=== PATIENT | male | born 1950 | race Caucasian/White ===

== ENCOUNTER 2016-11-14 10:55 | Inpatient (IN) | payer MEDICARE, BC ==
[~2016-11-14] VITALS: Ht 182.9 cm; Wt 106.0 kg
[2016-11-14] MEDS ORDERED: OXYB10TA PO (11:33)
[2016-11-14] MEDS ORDERED: IBUP400T20 PO (11:33)
[2016-11-14] MEDS ORDERED: AMLO5CAP3 PO (11:33)
[2016-11-14] MEDS ORDERED: FEXO180T PO (11:33)
[2016-11-14] MEDS ORDERED: KRIL1000 PO (11:33)
[2016-11-14] MEDS ORDERED: FENO145T2 PO (11:33)
[2016-11-14] MEDS ORDERED: SIMV10TA PO (11:33)
[2016-11-14] MEDS ORDERED: PROP80TA PO (11:33)
[2016-11-14] MEDS ORDERED: MULTTAB22 PO (11:33)
[2016-11-14] MEDS ORDERED: LEVO137T2 PO (11:33)
--- NOTE | 2016-11-25 09:44 | MH ---
cc: USMANSAGAR DATE OF ADMISSION: 11/26/2016 ADMITTING DIAGNOSIS Osteoarthritis of the left knee, patellofemoral disorder left knee, varus deformity left knee, pain left knee. HISTORY OF PRESENT ILLNESS The patient is a 66-year-old white male who has experienced at least a five-year history of pain involving his left knee. He presented to the office in February of this past year reporting bilateral knee pain of at least five years duration having noted the gradual onset of his symptoms more pronounced on the left side being unrelated to injury or unusual activity. He had undergone previous orthopedic evaluation while living in [facility], and was apparently diagnosed as having an arthritic condition for which he was advised to consider operative intervention but elected to continue with conservative management. He had been taking ibuprofen on a routine basis with limited benefit but with the passage of time became more symptomatic with pain that began to interfere with his daily routine. When seen in office evaluation in February of 2016 treatment options were reviewed. At that time the patient was fitted with a medial offloading brace and was thereafter advised conservative management. Unfortunately his insurance company would not cover the application of the brace and thus the patient utilized an orthotic hinged support of a commercial origin. He continued to take ibuprofen on a routine basis and was followed on an outpatient basis thereafter. He returned to the office in September of this year reporting increasing pain about his left knee that had begun to interfere with all forms of weightbearing activities. The pros and cons of continuing with conservative management versus operative intervention that would involve a total knee arthroplasty were outlined in detail. Emphasis was made regarding the fact that the decision to proceed with surgery would be left entirely to the patient's discretion. His current x-ray studies did reveal significant degenerative changes with near [id number] apposition about the medial compartment associated with a varus deformity of at least 10 degrees magnitude and secondary involvement of the patellofemoral articulation. The patient felt that his symptoms had progressed to a point in time where he was desirous of proceeding with operative treatment and in compliance with his wishes he is currently being admitted in order that the above be accomplished. PAST MEDICAL HISTORY His past medical history, hospitalizations and surgeries have included: 1. Bilateral cataract surgery with intraocular lens implants. 2. Tonsillectomy. 3. Colonoscopy. 4. Medical management for an infection of his left ankle. His medical illnesses include: 1. Hypothyroidism. 2. Essential tremor. 3. Elevated cholesterol. 4. Hypertension. 5. Asperger's disease. MEDICATIONS Current medications: 1. Levothyroxine 175 mcg daily. 2. Propranolol 80 mg twice daily for essential tremor. 3. Simvastatin 10 mg at bedtime. 4. Amlodipine. 5. Benazepril 5-20 daily. 6. Oxybutynin chloride ER, one daily. 7. Nafoxidine 180 mg daily. 8. Fenofibrate 145 mg daily. ALLERGIES The patient denies any known drug allergies. REVIEW OF SYSTEMS He does wear glasses. Denies headache, seizure or syncope. Occasional sinus congestion. No epistaxis. Auditory acuity intact. No tinnitus. No bleeding gums. He has occasional dysphagia. Denies cough, shortness of breath, upper respiratory infection, pneumonia or tuberculosis. No angina or heart disease. He is medically managed for hypertension. His appetite is good. Bowel movements are regular. No hepatitis, gallbladder disease, ulcers or hemorrhoids. No urinary tract infection. No kidney stones. No history of fractures. He has intermittent anxiety. His remaining review of systems is unremarkable and noncontributory. FAMILY HISTORY The patient is single. No children. Family history is positive for hypertension, stroke, thyroid disease, osteoporosis and breast cancer. SOCIAL HISTORY The patient completed a high school education. 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 Denies active use of tobacco. Ethanol consumption in the form of three beers on a weekly basis. PHYSICAL EXAMINATION Height 6 feet, weight 236 pounds. GENERAL: An alert, oriented and responsive 66-year-old white male who sits quietly upon the examination table with no obvious distress. HEENT: Pupils are equal, round and reactive to light. Extraocular movements are full. Sclera clear. External nares clear. External auditory canals clear. Dental intact. Mucous membranes pink and moist. Pharynx clear. NECK: Supple. Active range of motion without appreciable pain. Carotid pulse palpable bilaterally. Trachea midline. Thyroid without enlargement. LUNGS: Clear to auscultation and percussion. BACK: No CVA tenderness. No discomfort throughout the dorsolumbar spine. HEART: Regular rhythm. No murmur or gallop. ABDOMEN: Soft, nontender. Bowel sounds present. RECTAL: Per primary care physician. EXTREMITIES: Left Knee: No significant swelling or effusion. Minimal medial joint line tenderness. Apprehension and compression sign negative. Limited mobility in the 100 degree range of flexion with mild discomfort at the extreme of motion. No significant crepitation. No ligamentous laxity. Straight-leg raising unremarkable at 80 degrees. Independent gait. NEUROLOGIC: Cranial nerves II through XII grossly intact. IMPRESSION Osteoarthritis left knee, patellofemoral disorder left knee, varus deformity left knee, pain left knee. PLAN Left total knee arthroplasty. The nature of the planned surgical procedure, the potential complications and risks associated, the expectations of surgery and the consent form were thoroughly reviewed with the patient in the presence of his sister prior to admission to the hospital. Scott has indicated his full understanding regarding all of the above and given consent to proceed with treatment as outlined. Medical evaluation and clearance for surgery will be completed by his primary care physician, Dr. Josh Hollingsworth. Sagar Gautam MD NBS/BT /11:44 AM /8:43 AM
[2016-11-26 06:10] VITALS: BP 150/86; PULSE 58; RESP 16; TEMP 98.1; O2SAT 98
[2016-11-26] MEDS ORDERED: METOPROLOL TARTRATE 25 MG TAB PO PRN (06:15)
[2016-11-26] MEDS ORDERED: TRANEXAMIC ACID 1 GM PRIOR TO PROCEDURE IV SCH ×4 (06:15→06:30)
[2016-11-26] MEDS ORDERED: INSULIN HUMAN REGULAR 1,000 UNITS/10 ML VIAL SQ PRN (06:15)
[2016-11-26] MEDS ORDERED: ceFAZolin 2 GM PREMIX 50 ML IV SCH (06:15)
[2016-11-26] MEDS: POVIDONE IODINE 7.5% SCRUB 118 ML BOTTLE TOP SCH (06:15)
[2016-11-26 06:35] VITALS: PULSE 57
[2016-11-26] MEDS ORDERED: MIDAZOLAM HCL 5 MG/5 ML VIAL ONE (06:38)
[2016-11-26] MEDS ORDERED: LACTATED RINGER'S 1000 ML IV SCH (07:30)
[2016-11-26] MEDS ORDERED: TRANEXAMIC ACID IV SCH (07:30)
[2016-11-26] MEDS ORDERED: SODIUM CHLORID 0.9% 500 ML IV SCH (07:30)
[2016-11-26] MEDS ORDERED: SODIUM CHLORIDE 0.9% IV SCH (07:30)
[2016-11-26] MEDS ORDERED: HYDROmorphone HCL PF 2 MG/ML VIAL ONE (07:37)
[2016-11-26] MEDS ORDERED: ceFAZolin INJ 1,000 MG VIAL TOP ONE (07:50)
[2016-11-26] MEDS ORDERED: BUPIVACAINE HCL PF 0.5% 30 ML VIAL NB ONE (08:58)
[2016-11-26] MEDS ORDERED: TRANEXAMIC ACID INJ 1,000 MG in SODIUM CHLORIDE 0.9% INJ 100 ML IV SCH ×5 (09:30→10:15)
[2016-11-26] MEDS ORDERED: DO NOT ADM ANY ANTICOAGULANT DRUGS XX PRN (10:00)
[2016-11-26] MEDS: DEXT 5%-NACL 0.45% 1000 ML INJ 1,000 ML IV SCH ×2 (10:02→18:54)
[2016-11-26] MEDS ORDERED: DEXT 5%-NACL 0.45% 1000 ML INJ 1,000 ML IV SCH (10:07)
[2016-11-26] MEDS ORDERED: *morphine SULFATE 8 MG/ML PERIprocedure ONLY ONE (10:09)
[2016-11-26] MEDS ORDERED: ZOLPIDEM TARTRATE 5 MG TAB PO PRN ×2 (10:15)
[2016-11-26] MEDS ORDERED: Post-op Orders (for Pharmacy) MISC XX ONE ×2 (10:15)
[2016-11-26] MEDS ORDERED: MISCELLANEOUS PHARMACY INFORMATION XX ONE ×2 (10:15)
[2016-11-26] MEDS ORDERED: ONDANSETRON HCL 4 MG/2 ML VIAL IVP PRN ×2 (10:15)
[2016-11-26] MEDS ORDERED: SODIUM CHLORIDE 0.9% FLUSH 5 ML FLUSH IVF PRN ×2 (10:15)
[2016-11-26] MEDS ORDERED: DOCUSATE SODIUM 100 MG CAP PO PRN ×2 (10:15)
[2016-11-26] MEDS ORDERED: MAGNESIUM HYDROXIDE SUSP 30 ML CUP PO PRN (10:15)
[2016-11-26] MEDS ORDERED: RIVAROXABAN 10 MG TAB PO SCH (10:15)
[2016-11-26] MEDS ORDERED: MORPHINE SULFATE 30 MG/30 ML PCA IV SCH ×2 (10:15)
[2016-11-26] MEDS ORDERED: ACETAMINOPHEN/HYDROcodone 325 MG/5 MG TAB PO PRN ×3 (10:15)
[2016-11-26] MEDS ORDERED: diphenhydrAMINE HCL 25 MG CAP PO PRN (10:15)
[2016-11-26] MEDS ORDERED: BISACODYL 10 MG SUPP PR PRN (10:15)
[2016-11-26] MEDS ORDERED: ACETAMINOPHEN 325 MG TAB PO PRN ×2 (10:15)
[2016-11-26] MEDS ORDERED: NALOXONE HCL 0.4 MG/ML AMP IV PRN ×2 (10:15)
[2016-11-26 12:00] VITALS: BP 135/61; PULSE 57; RESP 18; TEMP 95.6; O2SAT 98
[2016-11-26] MEDS ORDERED: ONDANSETRON HCL 4 MG/2 ML VIAL IV PUSH ONE (12:00)
[2016-11-26] MEDS ORDERED: ACETAMINOPHEN 1000 MG/100 ML VIAL IV ONE (12:00)
[2016-11-26] MEDS ORDERED: PROPOFOL 200 MG/20 ML AMP IV ONE (12:00)
[2016-11-26] MEDS ORDERED: LACTATED RINGER'S 1000 ML INJ 1,000 ML IV ONE (12:00)
[2016-11-26] MEDS ORDERED: NEOSTIGMINE 3 MG/3 ML SYR IV ONE (12:00)
--- NOTE | 2016-11-26 12:23 | RADRPT ---
EXAM DATE/TIME: 11/26/2016 10:19 [facility] COMPARISON: No previous studies available for comparison. INDICATIONS : Post Op Left Knee. MEDICAL HISTORY : None. SURGICAL HISTORY : None. ENCOUNTER: Initial ACUITY: 1 day PAIN SCORE: Non-responsive. LOCATION: Left Knee FINDINGS: The patient is status post total knee replacement. The prosthetic components are well place. There is a suprapatellar drain present. Air seen in the soft tissues. CONCLUSION: Successful placement of a left total knee prosthesis. Pee Jackson MD on November 26, 2016 at 12:20 Board Certified Radiologist. This report was verified electronically.
[2016-11-26] MEDS ORDERED: fentaNYL CITRATE 250 MCG/5 ML AMP ONE (13:23)
[2016-11-26] MEDS ORDERED: PCA - TOTAL MG MORPHINE DELIVERED PER SHIFT SCH (14:00)
[2016-11-26] MEDS: PCA - TOTAL MG MORPHINE DELIVERED PER SHIFT SCH ×2 (14:00→19:45)
[2016-11-26 16:08] VITALS: O2SAT 98
[2016-11-26 17:00] VITALS: BP 142/76; PULSE 66; RESP 16; TEMP 95.2; O2SAT 94
--- NOTE | 2016-11-26 18:04 | PD.CONS ---
[facility] Request[facility] By Reason for Consult medical management Primary Care Physician Josh Hollingsworth M.D. Diagnoses: History of Present Illness 66 y/o M with Asperger's, HTN, HLP and hypothyroidism who p/w severe left OA s/ p Left total knee arthroplasty today. Patient failed conservative treatment. He is seen after surgery and has no complaints. patient sister is at the bedside who is helping with the interview. [facility] consulted for medical management. Review of Systems Constitutional: DENIES: Diaphoretic episodes, Fatigue, Fever, Weight gain, Weight loss, Chills, Dizziness, Change in appetite, Night Sweats Eyes: DENIES: Blurred vision, Diplopia, Eye inflammation, Eye pain, Vision loss , Photosensitivity, Double Vision Ears, nose, mouth, throat: DENIES: Tinnitus, Hearing loss, Vertigo, Nasal discharge, Oral lesions, Throat pain, Hoarseness, Ear Pain, Running Nose, Epistaxis, Sinus Pain, Toothache, Odynophagia Respiratory: DENIES: Apneas, Cough, Snoring, Wheezing, Hemoptysis, Sputum production, Shortness of breath Cardiovascular: DENIES: Chest pain, Palpitations, Syncope, Dyspnea on Exertion , PND, Lower Extremity Edema, Orthopnea, Claudication Gastrointestinal: DENIES: Abdominal pain, Black stools, Bloody stools, Constipation, Diarrhea, Nausea, Vomiting, Difficulty Swallowing, Anorexia Genitourinary: DENIES: Sexual dysfunction, Urinary frequency, Urinary incontinence, Urgency, Hematuria, Dysuria, Nocturia, Penile Discharge, Testicular Pain, Testicular Swelling Musculoskeletal: DENIES: Joint pain, Muscle aches, Stiffness, Joint Swelling, Back pain, Neck pain Integumentary: DENIES: Abnormal pigmentation, Nail changes, Pruritus, Rash Hematologic/lymphatic: DENIES: Bruising, Lymphadenopathy Immunologic/allergic: DENIES: Eczema, Urticaria Neurologic: DENIES: Abnormal gait, Headache, Localized weakness, Paresthesias, Seizures, Speech Problems, Tremor, Poor Balance Psychiatric: DENIES: Anxiety, Confusion, Mood changes, Depression, Hallucinations, Agitation, Suicidal Ideation, Homicidal Ideation, Delusions Past Family Social History Allergies: Coded Allergies: No Known Allergies (Unverified , 11/26/16) Past Medical History 1. Hypothyroidism. 2. Essential tremor. 3. Hyperlipidemia 4. Hypertension. 5. Asperger's disease. Past Surgical History 1. Bilateral cataract surgery with intraocular lens implants. 2. Tonsillectomy. 3. Colonoscopy. 4. Medical management for an infection of his left ankle. Reported Medications Reported Meds & Active Scripts Active Reported Ibuprofen 400 Mg Tab 400 Mg PO BID Krill Oil 1,000 Mg Cap 1,000 Mg PO DAILY Multi For Him (Multiple Vitamins W/ Minerals) 1 Tab Tab 1 Tab PO DAILY Fenofibrate 145 Mg Tab 145 Mg PO HS Fexofenadine (Fexofenadine HCl) 180 Mg Tab 180 Mg PO DAILY Amlodipine-Benazepril 5-20 Mg Cap 1 Cap PO DAILY Oxybutynin ER 24 HR (Oxybutynin Chloride) 10 Mg Tab 10 Mg PO DAILY Simvastatin 10 Mg Tab 10 Mg PO HS Propranolol (Propranolol HCl) 80 Mg Tab 80 Mg PO BID Levothyroxine (Levothyroxine Sodium) 137 Mcg Tab 137 Mcg PO DAILY Active Ordered Medications Current Medications Lactated Ringer's 1,000 ml @ 30 mls/hr Q24H IV Last administered on 11/26/16 06:25; Start 11/26/16 at 07:30; Stop 11/26/16 at 10:46; Status DC Sodium Chloride (NS 500 ml Inj) 500 ml @ 30 mls/hr [id number] IV ; Start 11/26/16 at 07:30; Stop 11/26/16 at 10:46; Status DC Insulin Human Regular (NovoLIN R INJ) See Protocol Table ... UNSCH X1 PRN SQ SEE PROTOCOL; Start 11/26/16 at 06:15; Stop 11/26/16 at 10:46; Status DC Metoprolol Tartrate (Lopressor) 25 mg UNSCH X1 PRN PO SEE LABEL COMMENTS; Start 11/26/16 at 06:15; Stop 11/26/16 at 10:46; Status DC Povidone Iodine 1 applic 1 applic ONCE TOP ; Start 11/26/16 at 06:15; Stop 11/29 at 06:14 Cefazolin Sodium/ Dextrose 50 ml @ 100 mls/hr MAPPING ENGINEER IV Last administered on 11/26/16 06:25; Start 11/26/16 at 06:15; Stop 11/26/16 at 12:52; Status DC Tranexamic Acid 1075 mg/Sodium Chloride 110.75 ml @ 200 mls/ hr ONCE IV ; Start 11/26/16 at 07:30; Stop 11/26/16 at 13:30; Status Cancel Tranexamic Acid 1000 mg/Sodium Chloride 110 ml @ 220 mls/hr ONCE IV ; Start at 06:15; Stop 11/27/16 at 06:14; Status Cancel Tranexamic Acid 1000 mg/Sodium Chloride 110 ml @ 200 mls/hr ONCE IV ; Start at 09:30; Stop 11/26/16 at 09:31; Status Cancel Tranexamic Acid/ Sodium Chloride (Cyklokapron Inj/ NS Inj) 110 ml @ 220 mls/hr ONCE IV Last administered on 11/26/16 06:30; Start 11/26/16 at 06:30; Stop at 12:30; Status DC Midazolam HCl (Versed Inj) 5 mg STK-MED ONCE .ROUTE Last administered on 06:46; Start 11/26/16 at 06:38; Stop 11/26/16 at 06:39; Status DC Hydromorphone HCl (Dilaudid Pf Inj) 2 mg STK-MED ONCE .ROUTE ; Start 11/26/16 at 07:37; Stop 11/26/16 at 07:38; Status DC Cefazolin Sodium (Ancef Inj) 2,000 mg STK-MED ONCE TOP Last administered on 07:50; Start 11/26/16 at 07:50; Stop 11/26/16 at 08:19; Status DC IV Flush (NS Flush) 2 ml UNSCH PRN IVF FLUSH AFTER USING IV ACCESS; Start 11/26 at 10:15; Status UNV IV Flush 2 ml 2 ml BID IVF ; Start 11/26/16 at 21:00; Status UNV Cefazolin Sodium/ Sodium Chloride (Ancef Inj/NS Inj) 100 ml @ 200 mls/hr Q6H IV Last administered on 11/26/16 13:33; Start 11/26/16 at 14:00; Stop at 02:29 Miscellaneous Information (Post-op Orders (for Pharmacy)) STAT ONCE XX ; Start 11/26/16 at 10:15; Stop 11/26/16 at 10:46; Status DC Rivaroxaban (Xarelto) 10 mg Q24H PO ; Start 11/26/16 at 10:15; Status UNV Miscellaneous Medication ([facility]) ONCE ONCE XX ; Start at 10:15; Stop 11/26/16 at 10:16; Status UNV Acetaminophen/ Hydrocodone Bitart ([place] 5-325 Mg) 1 tab Q4H PRN PO PAIN LESS THAN 5 ON SCALE; Start 11/26/16 at 10:15; Status UNV Acetaminophen/ Hydrocodone Bitart ([place] 5-325 Mg) 2 tab Q4H PRN PO PAIN SCALE 5 TO 10; Start 11/26/16 at 10:15; Status UNV Acetaminophen 650 mg 650 mg Q6H PRN PO Temp > 101; Start 11/26/16 at 10:15 Tranexamic Acid/ Sodium Chloride (Cyklokapron Inj/ NS Inj) 110 ml @ 200 mls/hr UNSCH IV ; Start 11/26/16 at 10:15; Stop 11/26/16 at 10:47; Status UNV Ondansetron HCl (Zofran Inj) 4 mg Q6H PRN IVP NAUSEA OR VOMITING; Start at 10:15; Status UNV Docusate Sodium (Colace) 100 mg BID PRN PO constipation; Start 11/26/16 at 10: 15; Status UNV Zolpidem Tartrate (Ambien) 5 mg HS PRN PO SLEEP; Start 11/26/16 at 10:15; Status UNV Bisacodyl (Dulcolax Supp) 10 mg DAILY PRN [place] CONSTIPATION; Start 11/26/16 at 10 :15 Magnesium Hydroxide (Milk Of Magnesia Liq) 30 ml DAILY PRN PO CONSTIPATION; Start 11/26/16 at 10:15 Naloxone HCl (Narcan Inj) 0.4 mg UNSCH PRN IV RESPIRATORY RATE LESS THAN 10; Start 11/26/16 at 10:15; Stop 11/28/16 at 12:00 Diphenhydramine HCl (Benadryl) 25 mg Q6H PRN PO ITCHING; Start 11/26/16 at 10: 15; Stop 11/28/16 at 12:00 Morphine Sulfate (Morphine 1 Mg/ ml LUMBER PLANER) 30 mg UNSCH IV Last administered on t 12:57; Start 11/26/16 at 10:15; Stop 11/28/16 at 12:00 LUMBER PLANER Dosage Infused (Pha) 1 1 Q8HR .XX Last administered on 11/26/16 14:00; Start 11/26/16 at 14:00; Stop 11/28/16 at 12:00 Dextrose/Sodium Chloride (D5W-1/2 NS 1000 ml Inj) 1,000 ml @ 125 mls/hr Q8H IV Last administered on 11/26/16 10:02; Start 11/26/16 at 10:02 Morphine Sulfate (*morphine INJ PERIprocedure ONLY) 8 mg STK-MED ONCE .ROUTE Last administered on 11/26/16 10:09; Start 11/26/16 at 10:09; Stop 11/26/16 at 10:10; Status DC IV Flush (NS Flush) 2 ml UNSCH PRN IVF FLUSH AFTER USING IV ACCESS; Start 11/26 at 10:15 IV Flush 2 ml 2 ml BID IVF ; Start 11/26/16 at 21:00 Cefazolin Sodium/ Sodium Chloride (Ancef Inj/NS Inj) 100 ml @ 200 mls/hr Q6H IV ; Start 11/26/16 at 10:15; Stop 11/26/16 at 22:44; Status UNV Miscellaneous Information (Post-op Orders (for Pharmacy)) STAT ONCE XX ; Start 11/26/16 at 10:15; Stop 11/26/16 at 10:45; Status DC Rivaroxaban (Xarelto) 10 mg Q24H PO ; Start 11/27/16 at 09:00 Miscellaneous Medication ([facility]) ONCE ONCE XX ; Start at 10:15; Stop 11/26/16 at 12:44; Status DC Acetaminophen/ Hydrocodone Bitart ([place] 5-325 Mg) 1 tab Q4H PRN PO PAIN LESS THAN 5 ON SCALE; Start 11/26/16 at 10:15 Acetaminophen/ Hydrocodone Bitart ([place] 5-325 Mg) 2 tab Q4H PRN PO PAIN SCALE 5 TO 10; Start 11/26/16 at 10:15 Acetaminophen 650 mg 650 mg Q6H PRN PO Temp > 101; Start 11/26/16 at 10:15; Status UNV Tranexamic Acid/ Sodium Chloride (Cyklokapron Inj/ NS Inj) 110 ml @ 200 mls/hr UNSCH IV ; Start 11/26/16 at 10:15; Stop 11/26/16 at 10:47; Status UNV Ondansetron HCl (Zofran Inj) 4 mg Q6H PRN IVP NAUSEA OR VOMITING; Start at 10:15 Docusate Sodium (Colace) 100 mg BID PRN PO constipation; Start 11/26/16 at 10: 15 Zolpidem Tartrate (Ambien) 5 mg HS PRN PO SLEEP; Start 11/26/16 at 10:15 Naloxone HCl (Narcan Inj) 0.4 mg UNSCH PRN IV RESPIRATORY RATE LESS THAN 10; Start 11/26/16 at 10:15; Status UNV Morphine Sulfate (Morphine 1 Mg/ ml LUMBER PLANER) 30 mg UNSCH IV ; Start 11/26/16 at 10: 15; Status UNV LUMBER PLANER Dosage Infused (Pha) 1 1 Q8HR .XX ; Start 11/26/16 at 14:00; Status UNV Dextrose/Sodium Chloride (D5W-1/2 NS 1000 ml Inj) 1,000 ml @ 125 mls/hr Q8H IV ; Start 11/26/16 at 10:07; Status UNV Miscellaneous Information ALL NURSING DEPARTME... UNSCH PRN XX SEE LABEL COMMENTS; Start 11/26/16 at 10:00; Stop 11/27/16 at 09:59 Pneumococcal Polyvalent Vaccine (Pneumovax-23 Inj) 25 mcg ONCE ONCE IM ; Start 11/27/16 at 10:00; Stop 11/27/16 at 10:01 Influenza Virus Vaccine (Flu (Quadrivalent) Vaccine Inj) 0.5 ml ONCE ONCE IM ; Start 11/27/16 at 10:00; Stop 11/27/16 at 10:01 Fentanyl Citrate (fentaNYL INJ) 250 mcg STK-MED ONCE .ROUTE ; Start 11/26/16 at 13:23; Stop 11/26/16 at 13:24; Status DC Family History mother had CVA maternal grandmother breast cancer Social History lives in [facility] with his sister. denied tobacco or illicit drug use. occasional alcohol use. Physical Exam Vital Signs Vital Signs Date Time Temp Pulse Resp B/P Pulse Ox O2 Delivery O2 Flow Rate FiO2 11/26/16 16:08 98 21 11/26/16 12:57 16 11/26/16 12:00 95.6 57 18 135/61 98 11/26/16 11:30 54 16 140/60 95 Room Air 11/26/16 11:00 56 16 156/71 97 Room Air 11/26/16 10:45 55 16 160/72 98 Room Air 11/26/16 10:30 60 16 117/57 97 Room Air 11/26/16 10:15 57 16 143/60 95 Room Air 11/26/16 09:58 98.6 79 16 133/81 97 Nasal Cannula 3 11/26/16 06:35 57 11/26/16 06:35 99 Nasal Cannula 3 11/26/16 06:10 98.1 58 16 150/86 98 Physical Exam GENERAL: This is a well-nourished, well-developed patient, in no apparent distress. SKIN: No rashes, ecchymoses or lesions. Cool and dry. HEAD: Atraumatic. Normocephalic. No temporal or scalp tenderness. EYES: Pupils equal round and reactive. Extraocular motions intact. No scleral icterus. No injection or drainage. ENT: Nose without bleeding, purulent drainage or septal hematoma. Throat without erythema, tonsillar hypertrophy or exudate. Uvula midline. Airway patent. NECK: Trachea midline. No JVD or lymphadenopathy. Supple, nontender, no meningeal signs. CARDIOVASCULAR: Regular rate and rhythm without murmurs, gallops, or rubs. RESPIRATORY: Clear to auscultation. Breath sounds equal bilaterally. No wheezes , rales, or rhonchi. GASTROINTESTINAL: Abdomen soft, non-tender, nondistended. No hepato-splenomegaly , or palpable masses. No guarding. MUSCULOSKELETAL: left knee in splint NEUROLOGICAL: Awake and alert. Cranial nerves II through XII intact. Motor and sensory grossly within normal limits. Five out of 5 muscle strength in all muscle groups. Normal speech. Laboratory Laboratory Tests Test 11/26/16 06:15 Blood Type O POSITIVE Antibody Screen NEGATIVE Blood Bank Comment Imaging Last Impressions Knee X-Ray 11/26/16 1002 Signed Impressions: Service Date/Time: Saturday, November 26, 2016 10:19 - CONCLUSION: Successful placement of a left total knee prosthesis. Pee Jackson MD Assessment and Plan Assessment and Plan Severe left knee OA -s/p Left total knee arthroplasty.. -managed per Ortho. HTN, HLP, hypothyroidism, Asperger -resume home meds. DVT prophylaxes -Lovenox Code Status full Discussed Condition With patient, his sister, multiple family members at bedside and nurse. Marcela Martinez MD Nov 26, 2016 18:04
[2016-11-26] MEDS: FENOFIBRATE 145 MG TAB PO SCH (20:15)
[2016-11-26] MEDS: PRAVASTATIN SOD 20 MG TAB PO SCH (20:15)
[2016-11-26] MEDS: SODIUM CHLORIDE 0.9% FLUSH 5 ML FLUSH IVF SCH (20:16)
[2016-11-26] MEDS ORDERED: SODIUM CHLORIDE 0.9% FLUSH 5 ML FLUSH IVF SCH (21:00)
[2016-11-26 23:05] VITALS: BP 147/60; PULSE 69; RESP 17; TEMP 96.7; O2SAT 97
[2016-11-27] VITALS: BP 154/79; PULSE 79; RESP 19; TEMP 96.9; O2SAT 99
[2016-11-27 04:00] VITALS: BP 136/73; PULSE 94; RESP 17; TEMP 97.1; O2SAT 95
[2016-11-27] MEDS: DEXT 5%-NACL 0.45% 1000 ML INJ 1,000 ML IV SCH ×4 (04:18→19:56)
[2016-11-27] MEDS: PCA - TOTAL MG MORPHINE DELIVERED PER SHIFT SCH ×4 (06:00→19:57)
[2016-11-27] MEDS ORDERED: ASPI325T PO (06:30)
[2016-11-27] MEDS ORDERED: HYDR-3516 PO (06:30)
--- NOTE | 2016-11-27 06:32 | HHI.FF ---
Face to Face Verification Diagnosis: (1) DJD (degenerative joint disease) of knee Physical Therapy Gait training Knee: Total knee, Protocol: Left, Full weight bearing Left LE Weight Bearing: WB as tolerated Left LE Range of Motion: Active ROM Nursing Dressing Changes: Daily dressing change I have seen patient Bonilla Kaplan on 11/27/16. My clinical findings support the need for the requested home health care services because: Limited ability to care for self High risk of falls I certify that my clinical findings support that this patient is homebound because: Post-op weakness Unsteady gait/balance Unsafe to leave home unassisted Toni Gautam MD Nov 27, 2016 06:32
[2016-11-27] MEDS ORDERED: WALKER WHEELS/F1 MIS (06:36)
[2016-11-27] MEDS ORDERED: MISC-163 (06:36)
[2016-11-27 06:59] LABS: HEMATOCRIT 30.8 % (39.0-51.0); REVIEW FLAG FINAL
[2016-11-27 08:00] VITALS: BP 163/71; PULSE 88; RESP 19; TEMP 97.3; O2SAT 95
[2016-11-27] MEDS: LEVOTHYROXINE SODIUM 112 MCG TAB PO SCH (08:08)
[2016-11-27] MEDS: LEVOTHYROXINE SODIUM 25 MCG TAB PO SCH (08:08)
[2016-11-27] MEDS ORDERED: NON-FORMULARY DRUG (Amlodipine-Benazepril 1 CAP) PO SCH (09:00)
[2016-11-27] MEDS ORDERED: NON-FORMULARY DRUG (Krill Oil 1,000 MG) PO SCH (09:00)
[2016-11-27] MEDS: TOLTERODINE TARTRATE 4 MG CAP LA PO SCH (09:20)
[2016-11-27] MEDS: SODIUM CHLORIDE 0.9% FLUSH 5 ML FLUSH IVF SCH ×2 (09:20→20:18)
[2016-11-27] MEDS: ACETAMINOPHEN/HYDROcodone 325 MG/5 MG TAB PO PRN ×3 (09:20→20:17)
[2016-11-27] MEDS: MULTIVITAMIN HEMATINIC THERAPEUTIC TAB PO SCH (09:20)
[2016-11-27] MEDS: LORATADINE 10 MG TAB PO SCH (09:21)
[2016-11-27] MEDS: LISINOPRIL 20 MG TAB PO SCH (09:21)
[2016-11-27] MEDS: amLODIPine BESYLATE 5 MG TAB PO SCH (09:21)
[2016-11-27] MEDS: RIVAROXABAN 10 MG TAB PO SCH (09:21)
[2016-11-27] MEDS ORDERED: INFLUENZA VIRUS VACCINE (QUADRIVALENT) 0.5 ML SYR IM ONE (10:00)
[2016-11-27] MEDS ORDERED: PNEUMOCOCCAL POLYVALENT INJ 25 MCG/0.5 ML SYR IM ONE (10:00)
--- NOTE | 2016-11-27 11:18 | HHI.PR ---
Subjective Remarks Pt has some pain but states that he had just gone for a walk. no CP/SOB/N/V doing well w PT he states. Objective Vitals Vital Signs Date Time Temp Pulse Resp B/P Pulse Ox O2 Delivery O2 Flow Rate FiO2 11/27/16 08:00 97.3 88 19 163/71 95 11/27/16 07:15 Room Air 11/27/16 04:00 97.1 94 17 136/73 95 11/27/16 00:00 96.9 79 19 154/79 99 11/26/16 23:05 96.7 69 17 147/60 97 11/26/16 17:00 95.2 66 16 142/76 94 11/26/16 16:08 98 21 11/26/16 12:57 16 11/26/16 12:00 95.6 57 18 135/61 98 11/26/16 11:30 54 16 140/60 95 Room Air I/O 11/26/16 11/26/16 11/26/16 11/27/16 11/27/16 11/27/16 07:00 15:00 23:00 07:00 15:00 23:00 Intake Total 1680 ml 240 ml 480 ml Output Total 425 ml 1530 ml Balance 1255 ml 240 ml -1050 ml Intake Oral 480 ml 240 ml 480 ml Other 1200 ml Output Urine Total 1400 ml Drainage Total 130 ml Estimated Blood Loss 200 ml Autotransfusion 225 ml # Voids 1 1 # Bowel Movements 0 0 0 Result Diagram: 11/27/16 0604 Imaging Last Impressions Knee X-Ray 11/26/16 1002 Signed Impressions: Service Date/Time: Saturday, November 26, 2016 10:19 - CONCLUSION: Successful placement of a left total knee prosthesis. Pee Jackson MD Objective Remarks GENERAL: This is a well-nourished, well-developed patient, in no apparent distress. CARDIOVASCULAR: Regular rate and rhythm without murmurs RESPIRATORY: Clear to auscultation. Breath sounds equal bilaterally. No wheezes GASTROINTESTINAL: Abdomen soft, non-tender, nondistended. No guarding. MUSCULOSKELETAL: left knee w dressing and drain in place. Serosanguinous, able to wiggle his toes and sensation intact NEUROLOGICAL: Awake and alert. Cranial nerves II through XII intact. Motor and sensory grossly within normal limits. Normal speech. A/P Assessment and Plan Severe left knee OA -s/p Left total knee arthroplasty.POD#1, pain control, anticoagulation, rehab managed by Ortho. HTN, HLP, hypothyroidism, Asperger -all home meds have been resumed. H&H stable post op. Pt is doing well and is clinically stable. Pt afebrile thus far. Encouraged use of IS q1hr while awake to prevent post op fever. DVT prophylaxis -xarelto per ortho Discharge Planning d/c per primary team Lacey Ngo MD Nov 27, 2016 11:18
[2016-11-27 11:54] VITALS: BP 161/80; PULSE 94; RESP 20; TEMP 98.4; O2SAT 95
[2016-11-27 16:00] VITALS: BP 158/78; PULSE 80; RESP 20; TEMP 97.6; O2SAT 95
[2016-11-27 20:00] VITALS: BP 128/61; PULSE 99; RESP 22; TEMP 96.8; O2SAT 97
[2016-11-27] MEDS: PRAVASTATIN SOD 20 MG TAB PO SCH (20:17)
[2016-11-27] MEDS: FENOFIBRATE 145 MG TAB PO SCH (20:17)
[2016-11-27] MEDS: POVIDONE IODINE 7.5% SCRUB 118 ML BOTTLE TOP SCH (23:40)
[2016-11-28] VITALS: BP 139/60; PULSE 95; RESP 20; TEMP 98.9; O2SAT 96
[2016-11-28] MEDS: ACETAMINOPHEN/HYDROcodone 325 MG/5 MG TAB PO PRN ×2 (06:17→11:36)
[2016-11-28] MEDS: LEVOTHYROXINE SODIUM 112 MCG TAB PO SCH (06:17)
[2016-11-28] MEDS: LEVOTHYROXINE SODIUM 25 MCG TAB PO SCH (06:17)
[2016-11-28 08:00] VITALS: BP 137/72; PULSE 84; RESP 16; TEMP 95.4; O2SAT 96
[2016-11-28] MEDS: MULTIVITAMIN HEMATINIC THERAPEUTIC TAB PO SCH (09:00)
[2016-11-28] MEDS: SODIUM CHLORIDE 0.9% FLUSH 5 ML FLUSH IVF SCH (09:00)
[2016-11-28] MEDS: LISINOPRIL 20 MG TAB PO SCH (09:49)
[2016-11-28] MEDS: RIVAROXABAN 10 MG TAB PO SCH (09:49)
[2016-11-28] MEDS: amLODIPine BESYLATE 5 MG TAB PO SCH (09:49)
[2016-11-28] MEDS: LORATADINE 10 MG TAB PO SCH (09:49)
[2016-11-28] MEDS: TOLTERODINE TARTRATE 4 MG CAP LA PO SCH (09:49)
[2016-11-28] MEDS: DEXT 5%-NACL 0.45% 1000 ML INJ 1,000 ML IV SCH (10:02)
[2016-11-28 12:00] VITALS: BP 153/70; PULSE 98; RESP 19; TEMP 96.3; O2SAT 96
--- NOTE | 2016-11-28 13:15 | MP ---
cc: SAGAR GAUTAM DATE OF SURGERY: 11/26/2016 PREOPERATIVE DIAGNOSIS Osteoarthritis of the left knee, patellofemoral disorder left knee, varus deformity left knee, pain left knee. POSTOPERATIVE DIAGNOSIS Osteoarthritis of the left knee, patellofemoral disorder left knee, varus deformity left knee, pain left knee. PROCEDURE Left total knee arthroplasty. SURGEON Lotus ANESTHESIA General endotracheal. INDICATIONS A 66-year-old white male with a five-year history of left knee pain who had reported the onset of bilateral knee pain within the previous five years with gradual onset but being more pronounced on the left side. He had undergone previous orthopedic evaluation while he was living in the [place], [place] area, and apparently was diagnosed as having an arthritic condition for which he was advised to consider operative intervention at that time. He elected to continue with conservative management which included taking ibuprofen on a routine basis with limited benefit being appreciated. With the passage of time he became progressively more symptomatic with pain that began to interfere with his daily routine. He was evaluated in the office in February of this past year and at that time overall findings and treatment options were reviewed. The patient was fitted with a medial offloading brace and was advised to continue with conservative management. Unfortunately his insurance company would not cover the application the brace and the patient thus utilized an orthotic hinged support of commercial origin. He continued to take ibuprofen on a routine basis while being followed thereafter. He returned to the office in September of this year reporting increasing pain about his left knee that had begun to interfere with all forms of weightbearing activities. The pros and cons of continued conservative management versus operative intervention involving total knee arthroplasty were outlined in detail. Emphasis was made regarding the fact that the decision to proceed with surgery would be left entirely to the patient's discretion. His current x-ray studies revealed significant degenerative changes with near [id number] apposition about the medial compartment associated with a varus deformity of at least 10 degrees magnitude and secondary involvement of the patellofemoral articulation. The patient felt that his symptoms had progressed to a point in time where he was desirous of proceeding with surgery as discussed and in compliance with his wishes he was scheduled for admission at this time in order that total knee replacement be completed. FORMAT Following the induction of satisfactory general anesthesia by endotracheal intubation as completed per the Department of Anesthesia, the patient was positioned upon the operating table in a supine orientation. A tourniquet was established around the proximal portion of the left lower extremity. The extremity proper was isolated with a U-drape thereafter being prepped with Betadine solution and draped into a sterile field in the routine manner. Prior to initiation of the actual procedure the standard time-out protocol was completed and all parameters were appropriately addressed and confirmed by operating room personnel. The extremity was elevated for approximately one minute and the tourniquet thus inflated to 250 mmHg pressure. A sharp skin incision was initiated midline over the anterior aspect of the knee and developed through underlying subcutaneous tissue with hemostasis maintained by electrocautery. By deepening dissection the anterior capsule was exposed. A medial capsulotomy completed and the patella subluxed in a lateral orientation. Examination of the joint space revealed severe tricompartmental degenerative changes with absence of the anterior cruciate ligament. The articular surface of the patella was resected with a power saw. The three-hole guide was utilized for establishing post holes. A centering hole was placed in the distal aspect of the femur allowing positioning of the intramedullary guide. A distal femoral cutting jig was attached and the distal femur resected. AP measurement noted 72.5 mm sizing to be appropriate. The matching cutting block was positioned, anterior, posterior and chamfer cuts were completed. The tibial plateau was thereafter subluxed in an anterior orientation allowing positioning of the extramedullary guide. The tibial plateau was resected and measured with 83 mm sizing determined to be appropriate. A trial reduction followed utilizing a 72.5 mm anatomic femoral component, an 83 mm tibial base with 10, 12 and 14 mm bearing inserts trialed in a sequential fashion. The 14 mm thickness was determined to be the most favorable fit. The knee was readily brought to full extension. There was no laxity to varus valgus stress at both 0 and 90 degrees flexed posture. Orientation was confirmed as being appropriate with measurement of the pelvic guide through the mechanical axis of the knee. A trial reduction followed utilizing a 34 mm standard three-post patellar button. Again, good tracking was demonstrated with no tendency toward subluxation. All trial components being removed the remaining portion of the proximal tibia was prepared for insertion of the permanent component. The joint space was thoroughly lavaged with pulsating antibiotic solution and hemostasis maintained by electrocautery. An autogenous bone plug was inserted in the distal femoral guide hole and thereafter a preparation of Palmer bone cement was utilized in inserting knee components in a sequential fashion which included an 83 mm fixed cruciate tibial plate to which a 14 mm Vanguard tibial bearing insert was secured with locking gaspar. The 72.5 mm Vanguard femoral component was firmly seated onto the distal femur. Excess cement being removed the knee was brought to full extension and thereafter the three-post standard 34 mm patellar button was attached and maintained in place with patellar clamp while cement hardening was completed. Final range of motion assessment noted good tracking and stability throughout the knee. Irrigation was repeated with hemostasis maintained. Autovac drain tubes were inserted through superior stab wounds. The capsule was repaired with 0 Vicryl suture. The remaining portion of the wound was closed in layers in the routine manner, skin margins being re-approximated with a running subcuticular 3-0 Vicryl suture over which Steri-Strips were applied. Xeroform gauze and a bulky dry sterile dressing were placed. The tourniquet was deflated after 59 minutes of tourniquet time, the extremity being supported in a canvas knee splint. Anesthesia was discontinued and he was thereafter transferred to a hospital bed and returned to the recovery room in satisfactory condition having tolerated his operative procedure well. Estimated blood loss was less than 200 cc. All implants were of the [employer] capital ream cutter. Sagar Gautam MD NBS/BT /9:56 AM /12:54 PM
--- NOTE | 2016-12-03 07:40 | MD ---
cc: ROSALIA WALDROP NORMAN ADMISSION DATE: 11/26/2016 DISCHARGE DATE: 11/28/2016 ADMITTING DIAGNOSIS Osteoarthritis of the left knee, patellofemoral disorder left knee, varus deformity left knee, and pain of the left knee. DISCHARGE DIAGNOSIS Osteoarthritis of the left knee, patellofemoral disorder left knee, varus deformity left knee, and pain of the left knee. HISTORY A 66-year-old white male with a five-year history of left knee pain. He had presented to the undersigned physician in February of this past year reporting bilateral knee pain of at least five years duration having noted the gradual onset of his symptoms being more pronounced on the left side and unrelated to injury or unusual activity. He had undergone previous orthopedic evaluation while he was living in the [place], [place] area and apparently was diagnosed as having an arthritic condition for which he was advised to consider operative intervention, but elected to continue with conservative modalities. He had been taking ibuprofen on a routine basis with limited benefit and became progressively more symptomatic with pain that began to interfere with his daily routine. When seen in office evaluation in February of 2016, treatment options were reviewed. At that time, the patient was prescribed a medial offloading brace and advised to continue with conservative modalities. Unfortunately, the insurance company would not cover the application of the brace and thus he utilized an orthotic hinged support of a commercial origin. He continued to take ibuprofen on a routine basis and was followed thereafter. He returned to the office in September of this year reporting increasing pain about his left knee that had begun to interfere with all forms of weightbearing activities. His x-ray studies revealed significant degenerative changes with near [id number] apposition about the medial compartment associated with a varus deformity of at least 10 degrees magnitude and secondary involvement of the patellofemoral articulation. Findings and treatment options were again reviewed. The pros and cons of continuing with conservative management versus operative intervention that would involve a total knee arthroplasty were outlined in detail. Emphasis was made regarding the fact that the decision to proceed with surgery would be left entirely to the patient's discretion. The patient readily admitted that his symptoms had progressed to a point in time where he was ready to proceed accordingly and in compliance with his wishes, he was scheduled for admission at this time in order that the above be accomplished. His physical examination at the time of admission revealed no significant swelling or effusion about the left knee with medial joint line tenderness. Apprehension and compression sign were negative. Limited mobility in the 100 degree range of flexion with pain associated, no appreciable crepitation. No ligamentous laxity. Straight-leg raising unremarkable at 80 degrees, independent gait. HOSPITAL COURSE Prior to admission to the hospital, the patient had undergone medical evaluation and clearance for surgery as completed by his primary care physician Dr. Waldrop. He was taken to the operating room on November 26, 2016 and on that date underwent a left total knee arthroplasty completed in an uncomplicated manner. The patient was noted to have tolerated his operative procedure well and his postoperative course stable thereafter. Hemoglobin/hematocrit assessment postoperatively was 10.9 and 30.8 respectively. The patient was progressively mobilized under the guidance of physical therapy being permitted weightbearing to tolerance about the left lower extremity. Follow up examination of his surgical wound noted to be intact, healing favorably with no evidence of infection. Medical followup per the hospitalist service. DVT prophylaxis initiated. micrographics services supervisor consulted to assist with discharge planning. The patient had expressed his desire to be discharged home and continue his rehabilitation on an outpatient basis. Plans were finalized in this regard and pending medical clearance, he was scheduled for discharge on the second postoperative day at which time he was noted to be making favorable progress with regards to his rehab program. He was scheduled be seen in office followup in approximately four weeks. CONDITION ON DISCHARGE Stable PROGNOSIS Favorable MEDICATIONS Discharge medications include: 1. Hydrocodone 5/325 #60 2. Aspirin 325 mg one tablet twice daily for three weeks #40. MD MICHAEL Guadalupe/CIARA /6:40 AM /7:28 AM
== END 2016-11-28 12:45 | disposition home health service (06) | DRG 470 ==
LOC: HSDI 11-26 05:39 → EDUNIT# 11-26 07:30 → N06A 11-26 11:44
PROVIDERS: ADMIT Orthopaedic Surgery; ATTEND Orthopaedic Surgery
PROC: 0QRF0JZ Replacement of Left Patella with Synthetic Substitute, Open Approach (ICD-10-PCS; 2016-11-26)
PROC: 0SRD0J9 Replacement of Left Knee Joint with Synthetic Substitute, Cemented, Open Approach (ICD-10-PCS; principal; 2016-11-26 07:13)
DX: M17.12 Unilateral primary osteoarthritis, left knee (principal); F84.5 Asperger's syndrome; M21.162 Varus deformity, not elsewhere classified, left knee; I10 Essential (primary) hypertension; E03.9 Hypothyroidism, unspecified; G25.0 Essential tremor; E78.5 Hyperlipidemia, unspecified; Z23 Encounter for immunization
CPT/HCPCS: 73560; 85014; 85018; 86850; 86891; 86900; 86901; 88305; 88307; 88311; 90471; 90472; 90686; 90732; 94150; C1776; G0008; G0009; J0131; J0690; J1170; J2250; J2270; J2405; J2710; J3010; J7120; L1830; Q2038

== ENCOUNTER → 2016-11-14 | Outpatient (CLI) | payer MEDICARE, BC ==
[~2016-11-14] MED LIST: AMLO5CAP3 PO; ASPI325T PO; FENO145T2 PO; FEXO180T PO; HYDR-3516 PO; IBUP400T20 PO; KRIL1000 PO; LEVO137T2 PO; MISC-163; MULTTAB22 PO; OXYB10TA PO; PROP80TA PO; SIMV10TA PO; WALKER WHEELS/F1 MIS
[2016-11-14 11:28] LABS: MEAN CELL VOLUME 87.8 FL (80.0-100.0); MEAN CORPUSCULAR HEMOGLOBIN 30.8 PG (27.0-34.0); MEAN CORPUSCULAR HGB CONC 35.1 % (32.0-36.0); PLATELET COUNT 239 TH/MM3 (150-450); RED BLOOD COUNT 4.55 MIL/MM3 (4.50-5.90); RED CELL DISTRIBUTION WIDTH 13.3 % (11.6-17.2); REVIEW FLAG FINAL
[2016-11-14 11:36] LABS: BLOOD, URINE NEG (NEG); COMMENT (UR) CULT NOT INDICATED; CULTURE IF INDICATED CULT NOT INDICATED; GLUCOSE,URINE NEG (NEG); KETONE, URINE NEG (NEG); NITRITE,URINE NEG (NEG); PH, URINE 5.5 (5.0-8.5); URINE COLOR YELLOW (YELLW/STRAW)
[2016-11-14 11:55] LABS: BICARBONATE 24.9 MEQ/L (21.0-32.0); POTASSIUM 4.2 MEQ/L (3.5-5.1)
[2016-11-14 11:57] LABS: PROTHROMBIN TIME - PATIENT 11.1 SEC (9.8-11.6)
--- NOTE | 2016-11-14 12:28 | RADRPT ---
EXAM DATE/TIME: 11/14/2016 12:06 [facility] COMPARISON: No previous studies available for comparison. INDICATIONS : Evaluate for pneumonia, pneumothorax, or comminicable disease. Pre op for knee replacement. MEDICAL HISTORY : None. SURGICAL HISTORY : None. ENCOUNTER: Initial ACUITY: 1 day PAIN SCORE: 0/10 LOCATION: Bilateral chest FINDINGS: PA and lateral views of the chest demonstrate the lungs to be symmetrically aerated without evidence of mass, infiltrate or effusion. The cardiomediastinal contours are unremarkable. Osseous structure s are intact. CONCLUSION: No acute disease. Tae Echevarria Jr., MD on November 14, 2016 at 12:25 Board Certified Radiologist. This report was verified electronically.
--- NOTE | 2016-11-15 18:20 | EKG ---
Date Performed: 11/14/2016 Time Performed: 11:23:24 PTAGE: 66 years EKG: SINUS BRADYCARDIA BORDERLINE ECG NO PREVIOUS TRACING DOCTOR: Brian Arnold Interpretating Date/Time 11/15/2016 18:13:58
== END ==
LOC: CPRE 10:47
PROVIDERS: ATTEND Orthopaedic Surgery
DX: Z01.810 Encounter for preprocedural cardiovascular examination (principal); Z01.811 Encounter for preprocedural respiratory examination; Z01.812 Encounter for preprocedural laboratory examination; M17.12 Unilateral primary osteoarthritis, left knee
CPT/HCPCS: 36415; 71020; 80048; 81001; 85027; 85610; 93005